=== PATIENT | female | born 1960 | race Native Hawaiian/Other Pacific Islander ===

== ENCOUNTER 2016-08-10 12:34 | Emergency (ER) | payer OTHER ==
[~2016-08-10] VITALS: Ht 172.7 cm; Wt 90.7 kg
[~2016-08-10 12:34] MED LIST: CLON1TAB18 PO; LISI10TA11 PO; PROZAC10 MG PO; TRAZ50TA36 PO
== END 2016-08-10 15:25 | disposition home or self-care (01) ==
LOC: ED 12:34
DX: R56.9 Unspecified convulsions (principal); R51 Headache
CPT/HCPCS: 96372; 99282; J1885

== ENCOUNTER 2016-08-19 09:57 | Outpatient (CLI) | payer OTHER | END 2016-08-19 20:28 | disposition home or self-care (01) | LOC: MAMMO 09:57 | DX: Z12.31 Encounter for screening mammogram for malignant neoplasm of breast (principal) | CPT/HCPCS: G0202-TC ==

== ENCOUNTER 2016-08-27 12:55 | Outpatient (CLI) | payer OTHER | END 2016-08-27 13:55 | disposition home or self-care (01) | LOC: US 12:55 | DX: N63 Unspecified lump in breast (principal) ==

== ENCOUNTER 2016-08-30 10:11 | Emergency (ER) | payer OTHER ==
[~2016-08-30] VITALS: Ht 170.2 cm; Wt 90.7 kg
== END 2016-08-30 11:23 | disposition home or self-care (01) ==
LOC: ED 10:11
DX: R51 Headache (principal); R56.9 Unspecified convulsions; F41.9 Anxiety disorder, unspecified
CPT/HCPCS: 99281

== ENCOUNTER 2016-12-04 20:50 | Emergency (ER) | payer OTHER ==
[~2016-12-04] VITALS: Ht 170.2 cm; Wt 89.8 kg
== END 2016-12-04 22:28 | disposition home or self-care (01) ==
LOC: ED 20:50
DX: S00.83XA Contusion of other part of head, initial encounter (principal); J32.8 Other chronic sinusitis; W22.8XXA Striking against or struck by other objects, initial encounter; Y92.098 Other place in other non-institutional residence as the place of occurrence of the external cause
CPT/HCPCS: 99283

== ENCOUNTER 2016-12-24 16:23 | Emergency (ER) | payer OTHER ==
[~2016-12-24] VITALS: Ht 170.2 cm; Wt 88.5 kg
== END 2016-12-24 16:56 | disposition home or self-care (01) ==
LOC: ED 16:23
DX: R51 Headache (principal); F41.8 Other specified anxiety disorders; J32.8 Other chronic sinusitis
CPT/HCPCS: 99282

== ENCOUNTER 2017-01-02 21:01 | Emergency (ER) | payer OTHER ==
[~2017-01-02] VITALS: Ht 172.7 cm; Wt 86.2 kg
[2017-01-02] MEDS ORDERED: PROZAC10 MG PO (21:41)
== END 2017-01-02 23:18 | disposition home or self-care (01) ==
LOC: ED 21:01
DX: J32.9 Chronic sinusitis, unspecified (principal); R04.0 Epistaxis; R51 Headache
CPT/HCPCS: 96372; 99283; J1885; J2405

== ENCOUNTER 2017-01-10 19:13 | Emergency (ER) | payer OTHER ==
[~2017-01-10] VITALS: Ht 172.7 cm; Wt 88.0 kg
[2017-01-10] MEDS ORDERED: CEPH500C20 PO (19:34)
[2017-01-10] MEDS ORDERED: ZYRTEC ALLERGY10 M1 PO (19:36)
== END 2017-01-10 23:17 | disposition home or self-care (01) ==
LOC: ED 19:13
DX: R51 Headache (principal); R22.0 Localized swelling, mass and lump, head
CPT/HCPCS: 99283

== ENCOUNTER 2017-03-24 19:48 | Emergency (ER) | payer OTHER ==
[~2017-03-24] VITALS: Ht 170.2 cm; Wt 82.1 kg
[~2017-03-24 19:48] MED LIST changes: +CEPH500C20 PO; +ZYRTEC ALLERGY10 M1 PO
[2017-03-24 20:06] VITALS: BP 156/84; TEMP 98.1
[2017-03-24 20:37] LABS: PLATELET COUNT 247 K/uL (152-353)
[2017-03-24 21:02] LABS: POTASSIUM 3.5 mmol/L (3.6-5.2)
== END 2017-03-24 22:54 | disposition home or self-care (01) ==
LOC: ED 19:48
DX: K29.60 Other gastritis without bleeding (principal); B96.81 Helicobacter pylori [H. pylori] as the cause of diseases classified elsewhere; R04.0 Epistaxis; F10.10 Alcohol abuse, uncomplicated
CPT/HCPCS: 36415; 80053; 80307; 80320; 81000; 85027; 86318; 99283; G0479

== ENCOUNTER 2017-06-21 17:13 | Emergency (ER) | payer OTHER ==
[~2017-06-21] VITALS: Ht 170.2 cm; Wt 77.1 kg
[2017-06-21 17:52] VITALS: BP 141/75; TEMP 98.4
== END 2017-06-21 18:22 | disposition home or self-care (01) ==
LOC: ED 17:13
DX: Z13.89 Encounter for screening for other disorder (principal); G89.29 Other chronic pain
CPT/HCPCS: 99282

== ENCOUNTER 2018-08-16 20:56 | Outpatient (CLI) | payer OTHER ==
[2018-08-17] MEDS ORDERED: TRAZODONE HYDR100 MG PO (20:15)
[2018-08-17] MEDS ORDERED: LISI10TA11 PO (20:18)
[2018-08-17] MEDS ORDERED: CYCLOBENZAPRINE10 MG PO (20:20)
[2018-08-17] MEDS ORDERED: NEURONTIN 100M100 MG PO (20:20)
[2018-08-17] MEDS ORDERED: MOBIC15 MG PO (20:22)
== END 2018-08-16 21:01 | disposition short-term general hospital (02) ==
LOC: AMB 20:56
DX: S00.83XA Contusion of other part of head, initial encounter (principal); W19.XXXA Unspecified fall, initial encounter; Y93.89 Activity, other specified; Y92.89 Other specified places as the place of occurrence of the external cause
CPT/HCPCS: A0425; A0429

== ENCOUNTER 2018-08-16 21:06 | Observation (INO) | payer OTHER ==
[~2018-08-16] VITALS: Ht 170.2 cm; Wt 75.5 kg
[2018-08-16 21:06] VITALS: BP 140/77; TEMP 97.7
[2018-08-16 23:05] LABS: PLATELET COUNT 219 K/uL (152-353)
[2018-08-16 23:17] LABS: POTASSIUM 3.6 mmol/L (3.6-5.2)
[2018-08-17 01:20] VITALS: BP 188/98
[2018-08-17 02:19] VITALS: BP 164/86; TEMP 97.2; Ht 170.2 cm; Wt 75.5 kg
[2018-08-17 07:30] VITALS: BP 133/70; TEMP 99.1
[2018-08-17 09:31] LABS: POTASSIUM 3.6 mmol/L (3.6-5.2)
[2018-08-17 09:32] LABS: PLATELET COUNT 214 K/uL (152-353)
[2018-08-17 12:00] VITALS: BP 116/54; TEMP 98.9
[2018-08-17 16:00] VITALS: BP 138/73; TEMP 98.7
[2018-08-17 20:00] VITALS: BP 118/58; TEMP 98.2
[2018-08-17] MEDS ORDERED: TRAZODONE HYDR100 MG PO (20:15)
[2018-08-17] MEDS ORDERED: LISI10TA11 PO (20:18)
[2018-08-17] MEDS ORDERED: CYCLOBENZAPRINE10 MG PO (20:20)
[2018-08-17] MEDS ORDERED: NEURONTIN 100M100 MG PO (20:20)
[2018-08-17] MEDS ORDERED: MOBIC15 MG PO (20:22)
[2018-08-18] VITALS: BP 121/68; TEMP 98.6
[2018-08-18 04:00] VITALS: BP 144/75; TEMP 98.3
[2018-08-18 08:00] VITALS: BP 127/73; TEMP 98
[2018-08-18] MEDS ORDERED: [UNRECOGNIZED DRUG - SUPPLY] XX (11:55)
[2018-08-18 12:00] VITALS: BP 148/78; TEMP 97.3
== END 2018-08-18 13:00 | disposition home or self-care (01) ==
LOC: ED 21:06 → MED/SURG 08-17 01:15
PROVIDERS: ADMIT Family Medicine
DX: S06.0X0A Concussion without loss of consciousness, initial encounter (principal); W18.39XA Other fall on same level, initial encounter; Y92.89 Other specified places as the place of occurrence of the external cause; F10.129 Alcohol abuse with intoxication, unspecified; Y90.6 Blood alcohol level of 120-199 mg/100 ml; I10 Essential (primary) hypertension; G40.802 Other epilepsy, not intractable, without status epilepticus; S32.028A Other fracture of second lumbar vertebra, initial encounter for closed fracture
CPT/HCPCS: 36415; 80048; 80053; 80307; 80320; 81000; 85027; 96361; 96374; 99220; 99284; G0378; J1885; J2060; J3490

== ENCOUNTER 2018-08-22 12:59 | Outpatient (CLI) | payer OTHER ==
[~2018-08-22 12:59] MED LIST changes: +CYCLOBENZAPRINE10 MG PO; +MOBIC15 MG PO; +NEURONTIN 100M100 MG PO; +TRAZODONE HYDR100 MG PO; +[UNRECOGNIZED DRUG - SUPPLY] XX
== END 2018-08-22 13:05 | disposition short-term general hospital (02) ==
LOC: AMB 12:59
DX: M54.89 Other dorsalgia (principal)
CPT/HCPCS: A0425; A0427

== ENCOUNTER 2018-08-22 13:08 | Emergency (ER) | payer OTHER ==
[~2018-08-22] VITALS: Ht 170.2 cm; Wt 73.5 kg
[2018-08-22 13:08] VITALS: TEMP 97.6
[2018-08-22 15:03] VITALS: BP 117/76
== END 2018-08-22 15:03 | disposition home or self-care (01) ==
LOC: ED 13:11
DX: M54.5 Low back pain (principal); S32.028A Other fracture of second lumbar vertebra, initial encounter for closed fracture; X50.1XXA Overexertion from prolonged static or awkward postures, initial encounter; W08.XXXA Fall from other furniture, initial encounter; Y92.89 Other specified places as the place of occurrence of the external cause
CPT/HCPCS: 96374; 96375; 99284; J2175; J2405

== ENCOUNTER 2018-08-26 10:47 | Emergency (ER) | payer OTHER ==
[~2018-08-26] VITALS: Ht 170.2 cm; Wt 73.5 kg
[2018-08-26 10:47] VITALS: TEMP 97.5
[2018-08-26 12:04] VITALS: BP 128/68
== END 2018-08-26 12:05 | disposition home or self-care (01) ==
LOC: ED 10:47
DX: S00.03XD Contusion of scalp, subsequent encounter (principal); S32.028A Other fracture of second lumbar vertebra, initial encounter for closed fracture
CPT/HCPCS: 90471; 90715; 99283; J7040

== ENCOUNTER 2018-08-28 09:22 | Outpatient (CLI) | payer OTHER | END 2018-08-28 09:27 | disposition short-term general hospital (02) | LOC: AMB 09:22 | DX: R42 Dizziness and giddiness (principal); R53.1 Weakness | CPT/HCPCS: A0425; A0427 ==

== ENCOUNTER 2018-08-28 09:33 | Emergency (ER) | payer OTHER ==
[~2018-08-28] VITALS: Ht 170.2 cm; Wt 73.5 kg
[2018-08-28 10:03] LABS: POTASSIUM 3.8 mmol/L (3.6-5.2)
[2018-08-28 10:31] LABS: PLATELET COUNT 331 K/uL (152-353)
[2018-08-28 12:09] VITALS: BP 128/63; TEMP 97
== END 2018-08-28 12:10 | disposition home or self-care (01) ==
LOC: ED 09:33
PROVIDERS: Allergy & Immunology
DX: S32.028A Other fracture of second lumbar vertebra, initial encounter for closed fracture (principal); M54.5 Low back pain
CPT/HCPCS: 36415; 80053; 85027; 96374; 99283

== ENCOUNTER 2018-08-28 17:17 | Outpatient (CLI) | payer OTHER | END 2018-08-28 17:33 | disposition short-term general hospital (02) | LOC: AMB 17:17 | DX: R53.81 Other malaise (principal) | CPT/HCPCS: A0425; A0427 ==

== ENCOUNTER 2018-09-01 13:33 | Emergency (ER) | payer OTHER ==
[~2018-09-01] VITALS: Ht 170.2 cm; Wt 72.6 kg
[2018-09-01 14:27] VITALS: BP 160/76; TEMP 99.1
== END 2018-09-01 14:27 | disposition home or self-care (01) ==
LOC: ED 13:33
DX: L98.498 Non-pressure chronic ulcer of skin of other sites with other specified severity (principal)
CPT/HCPCS: 99282; J1885

== ENCOUNTER 2018-09-06 13:33 | Outpatient (CLI) | payer OTHER | END 2018-09-06 13:34 | disposition short-term general hospital (02) | LOC: AMB 13:33 | DX: R42 Dizziness and giddiness (principal) | CPT/HCPCS: A0425; A0429 ==

== ENCOUNTER 2018-09-06 13:38 | Emergency (ER) | payer OTHER ==
[~2018-09-06] VITALS: Ht 170.2 cm; Wt 72.6 kg
[2018-09-06 15:30] VITALS: BP 152/83; TEMP 97.7
== END 2018-09-06 15:30 | disposition home or self-care (01) ==
LOC: ED 13:38
DX: L08.89 Other specified local infections of the skin and subcutaneous tissue (principal); S01.00XA Unspecified open wound of scalp, initial encounter
CPT/HCPCS: 96372; 99282; J1885

== ENCOUNTER 2018-09-10 11:48 | Outpatient (CLI) | payer OTHER | END 2018-09-10 11:53 | disposition short-term general hospital (02) | LOC: AMB 11:48 | DX: R53.81 Other malaise (principal) | CPT/HCPCS: A0425; A0429 ==

== ENCOUNTER 2018-09-10 12:00 | Emergency (ER) | payer OTHER ==
[~2018-09-10] VITALS: Ht 170.2 cm; Wt 72.6 kg
[2018-09-10 12:03] VITALS: BP 141/70; TEMP 97.9
== END 2018-09-10 13:45 | disposition home or self-care (01) ==
LOC: ED 12:00
DX: R53.1 Weakness (principal); R42 Dizziness and giddiness

== ENCOUNTER 2019-05-25 08:56 | Outpatient (CLI) | payer OTHER ==
[2019-05-25 09:57] LABS: POTASSIUM 4.1 mmol/L (3.6-5.2)
[2019-05-25 10:05] LABS: PLATELET COUNT 254 K/uL (152-353)
== END 2019-05-25 21:17 | disposition home or self-care (01) ==
LOC: LABW 08:56
PROVIDERS: Nurse Practitioner Family
DX: I10 Essential (primary) hypertension (principal); R53.83 Other fatigue
CPT/HCPCS: 36415; 80053; 80061; 82306; 82607; 84439; 84443; 85027

== ENCOUNTER 2021-01-02 10:20 | Emergency (ER) | payer OTHER | END 2021-01-02 12:10 | disposition home or self-care (01) | LOC: ED 10:20 | DX: S80.211A Abrasion, right knee, initial encounter (principal); S51.012A Laceration without foreign body of left elbow, initial encounter; S82.892A Other fracture of left lower leg, initial encounter for closed fracture; S82.402A Unspecified fracture of shaft of left fibula, initial encounter for closed fracture; W17.2XXA Fall into hole, initial encounter; Y92.89 Other specified places as the place of occurrence of the external cause | CPT/HCPCS: 96372; 99283; J1885 ==

== ENCOUNTER 2022-07-24 16:42 | Emergency (ER) | payer OTHER ==
[~2022-07-24] VITALS: Ht 170.2 cm; Wt 88.0 kg
[2022-07-24 17:00] VITALS: BP 148/71; TEMP 97
== END 2022-07-24 17:35 | disposition home or self-care (01) ==
LOC: ED 16:42
DX: S70.361A Insect bite (nonvenomous), right thigh, initial encounter (principal); L03.115 Cellulitis of right lower limb; W57.XXXA Bitten or stung by nonvenomous insect and other nonvenomous arthropods, initial encounter; Y92.89 Other specified places as the place of occurrence of the external cause
CPT/HCPCS: 99282

== ENCOUNTER 2022-07-31 14:35 | Emergency (ER) | payer OTHER ==
[~2022-07-31] VITALS: Ht 170.2 cm; Wt 88.0 kg
[2022-07-31 14:36] VITALS: TEMP 97.3
[2022-07-31 15:04] LABS: PLATELET COUNT 216 K/uL (152-353)
[2022-07-31 15:07] LABS: POTASSIUM 3.8 mmol/L (3.6-5.2)
[2022-07-31 15:20] LABS: PARTIAL THROMBOPLASTIN TIME 24.5 SECONDS (24.5-33.6)
[2022-07-31 17:25] VITALS: BP 122/66
== END 2022-07-31 17:25 | disposition home or self-care (01) ==
LOC: ED 14:35
PROVIDERS: Emergency Medicine
DX: R07.89 Other chest pain (principal); F41.8 Other specified anxiety disorders
CPT/HCPCS: 80053; 83880; 84484; 85027; 85379; 85610; 85730; 93005; 96361; 96374; 96375; 99284; J1885; J2060; Q9963